=== PATIENT | male | born 1975 | race Caucasian/White ===

== ENCOUNTER 2018-03-22 17:44 | Emergency (ER) | payer BC ==
[~2018-03-22] VITALS: Ht 182.9 cm; Wt 101.1 kg
[2018-03-22 19:00] LABS: APPEARANCE CLEAR ((CLEAR)); BILIRUBIN NEGATIVE; BLOOD NEGATIVE; COLOR STRAW ((YELLOW)); GLUCOSE (STRIP) NEGATIVE; KETONES NEGATIVE; LEUKOCYTES NEGATIVE; NITRITE NEGATIVE; PROTEIN (STRIP) NEGATIVE; SPECIFIC GRAVITY 1.012 (1.000-1.030); UCUL ADDED? NO; UROBILINOGEN 0.2 MG/DL (0.2-1.0)
[2018-03-22 19:06] LABS: HEMATOCRIT 43.1 % (38.0-50.0); HEMOGLOBIN 15.6 G/DL (12.5-16.6); MCHC 36.2 G/DL (30.0-36.0); MCV 91.1 FL (86-99); PLATELET COUNT 244 K/uL (156-360); RBC DIS.WIDTH-CV 11.9 % (11.8-14.6); RBC DIS.WIDTH-SD 39.8 % (39-53); RED BLOOD COUNT 4.73 M/uL (4.00-5.50); WHITE BLOOD COUNT 13.2 K/uL (4.1-10.2)
[2018-03-22 19:15] LABS: ALBUMIN 4.3 g/dL (3.2-4.8); CHLORIDE 104 mEq/L (99-109); POTASSIUM 3.9 mEq/L (3.7-5.4); SODIUM 138 mEq/L (136-147)
[2018-03-22 19:17] LABS: GLUCOSE 86 mg/dL (70-99)
[2018-03-22 19:18] LABS: TOTAL PROTEIN 6.7 g/dL (6.4-8.3)
[2018-03-22 19:19] LABS: TOTAL BILIRUBIN 0.5 mg/dL (0.0-1.0)
[2018-03-22 19:21] LABS: ALKALINE PHOSPHATASE 64 IU/L (3-129); GFR ESTIMATE (CALCULATED) > 59 mL/min/ (58.99-99999)
[2018-03-22 19:22] LABS: UREA NITROGEN (BUN) 17 mg/dL (9-23)
[2018-03-22 19:23] LABS: AST (GOT) 22 IU/L (2-34)
[2018-03-22 19:24] LABS: ALT (GPT) 33 IU/L (3-49); LIPASE 22 U/L (1.0-51.0)
[2018-03-22] MEDS ORDERED: PERCOCET 5/31 TABLET PO (21:41)
[2018-03-22] MEDS ORDERED: KEFLEX500 MG PO (21:41)
[2018-03-22 22:03] VITALS: BP 142/82
== END 2018-03-22 22:04 | disposition home or self-care (01) ==
LOC: EME 17:44
PROVIDERS: Physician Assistant
DX: N49.2 Inflammatory disorders of scrotum (principal); N43.3 Hydrocele, unspecified; K57.30 Diverticulosis of large intestine without perforation or abscess without bleeding; I70.0 Atherosclerosis of aorta; M51.26 Other intervertebral disc displacement, lumbar region; I10 Essential (primary) hypertension; F17.200 Nicotine dependence, unspecified, uncomplicated; Z98.890 Other specified postprocedural states
CPT/HCPCS: 74177; 76870; 80053; 81003; 83690; 85027; 99281; 99284; J0696; J1885; J7030